=== PATIENT | male | born 1995 | race Caucasian/White ===

== ENCOUNTER 2018-02-01 08:39 | Emergency (ER) | payer SELFPAY ==
[2018-02-01] MEDS ORDERED: Ondansetron 4 MG Tab.DIS PO ONE (08:52)
[2018-02-01] MEDS ORDERED: Ibuprofen 600 MG Tab PO ONE (08:53)
[2018-02-01] MEDS ORDERED: Acetaminophen/HYDROcodone 325-5 MG Tab PO ONE (08:53)
--- NOTE | 2018-02-01 09:15 | EDM.PDOC ---
ED HPI GENERAL MEDICAL PROBLEM - General Chief Complaint: Genitourinary Problem Stated Complaint: KIDNEY PAIN Time Seen by Provider: 02/01/18 08:50 Source of Information: Reports: Patient History Limitations: Reports: No Limitations - History of Present Illness INITIAL COMMENTS - FREE TEXT/NARRATIVE: The patient presents with right flank pain. This started this morning at 6: 30am. He has nausea and vomiting with it. He denies fever, chills, cough, chest pain, and shortness of breath. He has no history of kidney stones. He has no medical problems. Onset: Sudden Duration: Hour(s): (2) Location: Reports: Back (right flank pain) Quality: Reports: Sharp Severity: Severe Improves with: Reports: None Worsens with: Reports: None Associated Symptoms: Reports: Nausea/Vomiting. Denies: Chest Pain, Cough, Diaphoresis, Fever/Chills, Headaches, Shortness of Breath Right Flank Pain Score (Numeric/FACES): 9 - Related Data Allergies Allergy/AdvReac Type Severity Reaction Status Date / Time cats Allergy Airway Uncoded 02/01/18 08:47 Tightness dander Allergy Cannot Uncoded 02/01/18 08:47 Remember pollen Allergy Cannot Uncoded 02/01/18 08:47 Remember Home Meds: Home Meds Albuterol Inhaler. 02/01/18 [History] Benadryl. 02/01/18 [History] Hydrocodone/Acetaminophen [Hydrocodon-Acetaminophen 5-325] 1 - 2 each PO Q6HR PRN #20 tablet 02/01/18 [Rx] Ondansetron [Zofran ODT] 4 mg PO Q6H PRN #20 tab.dis 02/01/18 [Rx] Tamsulosin HCl [Flomax] 0.4 mg PO DAILY #7 cap.er.24h 02/01/18 [Rx] ED ROS GENERAL - Review of Systems Review Of Systems: See Below Constitutional: Reports: No Symptoms HEENT: Reports: No Symptoms Respiratory: Reports: No Symptoms Cardiovascular: Reports: No Symptoms Endocrine: Reports: No Symptoms GI/Abdominal: Reports: Nausea, Vomiting. Denies: Abdominal Pain : Reports: No Symptoms Musculoskeletal: Reports: Back Pain (right flank pain) ED EXAM, RENAL/ - Physical Exam Exam: See Below Exam Limited By: No Limitations General Appearance: Moderate Distress Ears: Normal External Exam Nose: Normal Inspection Head: Atraumatic, Normocephalic Neck: Normal Inspection Respiratory/Chest: No Respiratory Distress, Lungs Clear, Normal Breath Sounds Cardiovascular: Regular Rate, Rhythm, No Edema, No Murmur GI/Abdominal: Soft, Non-Tender, No Organomegaly, No Mass Back Exam: CVA Tenderness (R) (Mild) Extremities: Normal Inspection Neurological: Alert, Oriented, No Motor/Sensory Deficits Course - Vital Signs Last Recorded V/S: Last Vital Signs Temp 97.6 F 02/01/18 08:48 Pulse 82 02/01/18 08:48 Resp 18 02/01/18 08:48 BP 128/91 H 02/01/18 08:48 Pulse Ox 100 02/01/18 08:48 - Orders/Labs/Meds Orders: Active Orders 24 hr Category Date Time Status Peripheral IV Care [RC] . DIRECTED Care 02/01/18 10:08 Active Abdomen Pelvis wo Cont [CT] Stat Exams 02/01/18 08:50 Taken Sodium Chloride 0.9% [Normal Saline] 1,000 ml Med 02/01/18 10:15 Active IV ASDIRECTED Sodium Chloride 0.9% [Saline Flush] Med 02/01/18 10:08 Active 10 ml FLUSH ASDIRECTED PRN ED Antiemetic Medication Reflex [OM.PC] Stat Oth 02/01/18 08:50 Ordered Peripheral IV Insertion Adult [OM.PC] Routine Oth 02/01/18 10:08 Ordered Medication Orders Sodium Chloride (Normal Saline) 1,000 mls @ 150 mls/hr IV ASDIRECTED GIOVANNI Last Admin: 02/01/18 10:19 Dose: 150 mls/hr Sodium Chloride (Saline Flush) 10 ml FLUSH ASDIRECTED PRN PRN Reason: Keep Vein Open Last Admin: 02/01/18 10:20 Dose: 10 ml Labs: Laboratory Tests 02/01/18 02/01/18 02/01/18 Range/Units 09:00 09:00 09:44 WBC 12.83 H (4.23-9.07) K/mm3 RBC 4.85 (4.63-6.08) M/mm3 Hgb 14.9 (13.7-17.5) gm/L Hct 45.1 (40.1-51.0) % MCV 93.0 H (79.0-92.2) fl MCH 30.7 (25.7-32.2) pg MCHC 33.0 (32.2-35.5) g/dl RDW Std Deviation 42.6 (35.1-43.9) fL Plt Count 286 (163-337) K/mm3 MPV 9.4 (9.4-12.3) fl Neut % (Auto) 77.9 H (34.0-67.9) % Lymph % (Auto) 12.5 L (21.8-53.1) % [place] % (Auto) 4.6 L (5.3-12.2) % Eos % (Auto) 4.5 (0.8-7.0) Baso % (Auto) 0.3 (0.1-1.2) % Neut # (Auto) 10.00 H (1.78-5.38) K/mm3 Lymph # (Auto) 1.60 (1.32-3.57) K/mm3 [place] # (Auto) 0.59 (0.30-0.82) K/mm3 Eos # (Auto) 0.58 H (0.04-0.54) K/mm3 Baso # (Auto) 0.04 (0.01-0.08) K/mm3 Sodium 141 (136-145) mEq/L Potassium 4.1 (3.5-5.1) mEq/L Chloride 107 (98-107) mEq/L Carbon Dioxide 25 (21-32) mEq/L Anion Gap 13.1 (5-15) BUN 13 (7-18) mg/dL Creatinine 1.1 (0.7-1.3) mg/dL Est Cr Clr Drug Dosing 94.25 mL/min Estimated GFR (MDRD) > 60 (>60) mL/min BUN/Creatinine Ratio 11.8 L (14-18) Glucose 123 H (74-106) mg/dL Calcium 8.8 (8.5-10.1) mg/dL Total Bilirubin 0.3 (0.2-1.0) mg/dL AST 21 (15-37) U/L ALT 26 (16-63) U/L Alkaline Phosphatase 66 (46-116) U/L Total Protein 7.3 (6.4-8.2) g/dl Albumin 4.1 (3.4-5.0) g/dl Globulin 3.2 gm/dL Albumin/Globulin Ratio 1.3 (1-2) Lipase 76 (73-393) U/L Urine Color Yellow (Yellow) Urine Appearance Slt cloudy H (Clear) Urine pH 7.0 (5.0-8.0) Ur Specific [place] > or = 1.030 (1.005-1.030) Urine Protein 1+ H (Negative) Urine Glucose (UA) Negative (Negative) Urine Ketones Negative (Negative) Urine Occult Blood 3+ H (Negative) Urine Nitrite Negative (Negative) Urine Bilirubin Negative (Negative) Urine Urobilinogen 0.2 (0.2-1.0) Ur Leukocyte Esterase Negative (Negative) Urine RBC 40-50 H (0-5) /hpf Urine WBC 0-5 (0-5) /hpf Ur Epithelial Cells 0-5 (0-5) /hpf Urine Bacteria Few (FEW) /hpf Urine Mucus Many H (FEW) /hpf Meds: Medications Generic Name Dose Route Start Last Admin Trade Name [place] PRN Reason Stop Dose Admin Sodium Chloride 1,000 mls @ 150 mls/hr 02/01/18 10:15 02/01/18 10:19 Normal Saline IV 150 mls/hr ASDIRECTED GIOVANNI Administration Sodium Chloride 10 ml 02/01/18 10:08 02/01/18 10:20 Saline Flush FLUSH 10 ml ASDIRECTED PRN Administration Keep Vein Open Discontinued Medications Generic Name Dose Route Start Last Admin Trade Name Freq PRN Reason Stop Dose Admin Hydrocodone Bitart/Acetaminophen 2 tab 02/01/18 08:53 02/01/18 09:28 [place] 325-5 Mg PO 02/01/18 08:54 2 tab ONETIME ONE Administration Hydromorphone HCl 0.5 mg 02/01/18 10:08 02/01/18 10:22 Dilaudid IVPUSH 02/01/18 10:09 0.5 mg ONETIME ONE Administration Ibuprofen 600 mg 02/01/18 08:53 02/01/18 09:29 Motrin PO 02/01/18 08:54 600 mg ONETIME ONE Administration Ondansetron HCl 4 mg 02/01/18 08:52 02/01/18 08:59 Zofran Odt PO 02/01/18 08:53 4 mg ONETIME ONE Administration Ondansetron HCl 4 mg 02/01/18 10:08 02/01/18 10:20 Zofran IVPUSH 02/01/18 10:09 4 mg ONETIME ONE Administration - Re-Assessments/Exams Free Text/Narrative Re-Assessment/Exam: 02/01/18 09:11 The patient did not want an IV so I ordered zofran 4mg ODT PO, hydrocodone 5mg/ 325g X 2 PO, motrin 600mg PO, labs, UA and a CT of his abdomen and pelvis looking for a kidney stone. 02/01/18 10:48 His WBC is elevated at 12.83. His glucose was elevated at 123. His UA shows blood but no UTI. His CT shows a 1.5mm distal right ureteral calculus causes dilatation of the right ureter and right collecting system. The right kidney is edematous and there is right perirenal stranding. Ground glass opacities in the right middle lobe and lingula. May represent midl atelectasis or pneumonia. 02/01/18 10:50 He did not want an IV but the oral meds were not helping. He wanted an IV now. I then ordered an IV NS at 150mL/hr, zofran 4mg IV, and dilaudid 0.5mg IV. He feels much better. I will discharge him home. Departure - Departure Time of Disposition: 10:55 Disposition: Home, Self-Care 01 Condition: Good Clinical Impression: Kidney stone, Ureteral calculus, right - Discharge Information *PRESCRIPTION DRUG MONITORING PROGRAM REVIEWED*: No *COPY OF PRESCRIPTION DRUG MONITORING REPORT IN PATIENT RAMÍREZ: No Prescriptions: Hydrocodone/Acetaminophen [Hydrocodon-Acetaminophen 5-325] 1 - 2 each PO Q6HR PRN #20 tablet PRN Reason: Pain Ondansetron [Zofran ODT] 4 mg PO Q6H PRN #20 tab.dis PRN Reason: Nausea\vomiting Tamsulosin HCl [Flomax] 0.4 mg PO DAILY #7 cap.er.24h Referrals: PCP,None [Primary Care Provider] - Jarett Santo PA-C [Physician Admittance Attendant] - 1 Week Forms: ED Department Discharge Additional Instructions: Take the flomax daily for 1 week. Take the hydrocodone as needed for pain. Drink plenty of fluids. Please return if you are worse. - My Orders Last 24 Hours: My Active Orders 02/01/18 08:50 Abdomen Pelvis wo Cont [CT] Stat ED Antiemetic Medication Reflex [OM.PC] Stat 02/01/18 10:08 Peripheral IV Care [RC] . DIRECTED Sodium Chloride 0.9% [Saline Flush] 10 ml FLUSH ASDIRECTED PRN Peripheral IV Insertion Adult [OM.PC] Routine 02/01/18 10:15 Sodium Chloride 0.9% [Normal Saline] 1,000 ml IV ASDIRECTED - Assessment/Plan Last 24 Hours: My Active Orders 02/01/18 08:50 Abdomen Pelvis wo Cont [CT] Stat ED Antiemetic Medication Reflex [OM.PC] Stat 02/01/18 10:08 Peripheral IV Care [RC] . DIRECTED Sodium Chloride 0.9% [Saline Flush] 10 ml FLUSH ASDIRECTED PRN Peripheral IV Insertion Adult [OM.PC] Routine 02/01/18 10:15 Sodium Chloride 0.9% [Normal Saline] 1,000 ml IV ASDIRECTED
[2018-02-01] MEDS ORDERED: HYDROmorphone 0.5 MG/0.5 ML SYRINGE IVPUSH ONE (10:08)
[2018-02-01] MEDS ORDERED: Ondansetron 4 MG/2 ML SDV IVPUSH ONE (10:08)
[2018-02-01] MEDS ORDERED: Sodium Chloride 0.9% 10 ML Syringe FLUSH PRN (10:08)
[2018-02-01] MEDS ORDERED: Sodium Chloride 0.9% 1,000 ML IV SCH (10:15)
--- NOTE | 2018-02-02 07:13 | CT ---
CT abdomen and pelvis Technique: Multiple axial sections were obtained from above the dome of the diaphragm inferiorly through the pubic symphysis. Intravenous and oral contrast was not utilized. Study has been performed as a ureteral stone protocol. Findings: Ground-glass appearance noted within the right middle lobe with differential including atelectasis as well as small area of pneumonia. Visualized lung bases otherwise are clear. Kidneys show no abnormal calcifications. Right ureter is prominent in size which is caused by an obstructing 2.4 mm stone within the distal right ureter slightly proximal to the UVJ. No other ureteral calculi are seen. Noncontrast appearance of the liver and spleen appears within normal limits. Mild wall thickening is noted within the distal esophagus most likely representing change from reflux esophagitis. Adrenal glands show no nodule. Pancreas is within normal limits. Gallbladder contains no calcified gallstones. Aorta shows no aneurysm. No retroperitoneal adenopathy is seen. No pelvic mass or adenopathy is seen. No free fluid is seen. Appendix not definitely seen. Bone window settings were reviewed which appear within normal limits for the patient's age. Impression: 1. Dilated right ureter due to an obstructing 2.4 mm stone within the distal right ureter located slightly proximal to the UVJ. 2. Ground-glass appearance within the right middle lobe either due to atelectasis or small area of pneumonia. 3. Thickened wall within the distal esophagus most likely representing chronic reflux esophagitis. Diagnostic code #3 Agree with preliminary report issued by [facility], additional note as described above ([facility] preliminary report dictated on 02/01/18, 11:10 AM Central Time) (code 2)
== END 2018-02-01 11:26 | disposition home or self-care (01) ==
LOC: JD.ED 08:39
DX: N20.2 Calculus of kidney with calculus of ureter (principal); Z91.09 Other allergy status, other than to drugs and biological substances
CPT/HCPCS: 36415; 74176; 80053; 81001; 83690; 85025; 96361; 96374; 96375; 99284; A9270; J1170; J2405; J7040; J7050